=== PATIENT | male | born 1965 | race Caucasian/White ===

== ENCOUNTER 2019-08-08 17:13 | Emergency (ER) | payer MEDICARE, MEDICAID ==
[~2019-08-08] VITALS: Ht 180.3 cm; Wt 97.0 kg
[~2019-08-08 17:13] MED LIST: EFAV1TAB PO; HYDR-4353 PO; LISI-600 PO; METO50TA17 PO
[2019-08-08 17:41] VITALS: BP 177/99
[2019-08-08] MEDS ORDERED: TETanus/Pertussis (Acell)/Diphther VAC/PF (Tdap-Adult) 0.5ml syringe IMVAC ONE (18:15)
[2019-08-08] MEDS ORDERED: AMOX-580 PO (18:16)
== END 2019-08-08 19:06 | disposition home or self-care (01) ==
LOC: ER 17:13
DX: S61.431A Puncture wound without foreign body of right hand, initial encounter (principal); I10 Essential (primary) hypertension; G89.29 Other chronic pain; Z60.2 Problems related to living alone; Z79.899 Other long term (current) drug therapy; W54.0XXA Bitten by dog, initial encounter; Y93.89 Activity, other specified; Y92.89 Other specified places as the place of occurrence of the external cause; Y99.8 Other external cause status
CPT/HCPCS: 73130; 90471; 90715; 99283